=== PATIENT | female | born 1960 | race Two or more races ===

== ENCOUNTER 2018-05-16 23:25 | Emergency (ER) | payer OTHER ==
[~2018-05-16] VITALS: Ht 170.2 cm; Wt 69.9 kg
[2018-05-16 23:39] VITALS: BP 114/59
[2018-05-16] MEDS ORDERED: BENADRYL25 MG ORAL (23:57)
[2018-05-16] MEDS ORDERED: DOXYCYCLINE MO100 MG ORAL (23:57)
--- NOTE | 2018-05-16 23:58 | Emergency Room Report ---
History of Present Illness General Chief Complaint: Skin Rash/Abscess Source: Patient Present Illness HPI Is a 57-year-old female who presents with chief complaint of redness to left leg. She said she got bitten by mosquitoes yesterday and now with redness and increasing swelling. Similar symptom a few years ago. No nausea no vomiting. His itching. Denies any drainage. Denies any other complaint. Worse with scratching. Allergies: Coded Allergies: CODEINE (Verified Allergy, Mild, 01/02/09) SULFA (SULFONAMIDE ANTIBIOTICS) (Verified Allergy, Mild, 01/02/09) Patient History Past Medical History: see triage record, old chart reviewed Past Surgical History: other Pertinent Family History: none Social History: Denies: smoking Last Menstrual Period: n/a Now: No : 0 Para: 0 Immunizations: other Reviewed Nursing Documentation: PMH: Agreed; PSxH: Agreed Nursing Documentation-PM Past Medical History: No Stated History Review of Systems Eye: Denies: eye pain, blurred vision ENT: Denies: ear pain, nose congestion, throat swelling Respiratory: Denies: cough, shortness of breath Cardiovascular: Denies: chest pain, palpitations Gastrointestinal: Denies: abdominal pain, diarrhea, nausea, vomiting Musculoskeletal: Denies: back pain, joint pain Skin: Reports: rash Neurological: Denies: headache, numbness Endocrine: Denies: increased thirst, increased urine Hematologic/Lymphatic: Denies: easy bruising All Other Systems: negative except mentioned in HPI Physical Exam Vital Signs Date Time Temp Pulse Resp B/P (MAP) Pulse Ox O2 Delivery O2 Flow Rate FiO2 05/16/18 23:29 72 16 114/59 97 vitals normal Sp02 EP Interpretation: reviewed, normal General Appearance: well appearing, no apparent distress, alert Head: normocephalic, atraumatic Eyes: bilateral eye PERRL, bilateral eye EOMI ENT: hearing grossly normal, normal pharynx Neck: full range of motion, supple, no meningismus Respiratory: chest non-tender, lungs clear, normal breath sounds Cardiovascular #1: regular rate, rhythm, no murmur Gastrointestinal: normal bowel sounds, non tender, no mass, no organomegaly, no bruit, non-distended Musculoskeletal: back normal, gait/station normal, normal range of motion Neurologic: alert, oriented x3 Psychiatric: mood/affect normal Skin: warm/dry, other - She has erythema to the left ankle area. She has indurated area of 2 cm with surrounding erythema of 6 cm circumference. No abscess. No crepitance. Medical Decision Making Diagnostic Impression: Primary Impression: Cellulitis and abscess of leg ER Course She with cellulitis of her lower extremity. This may be secondary to reaction to mosquito bite. No evidence of necrotizing fasciitis or abscess. We'll discharge home. Last Vital Signs Date Time Temp Pulse Resp B/P (MAP) Pulse Ox O2 Delivery O2 Flow Rate FiO2 05/16/18 23:29 72 16 114/59 97 Status: improved Disposition: HOME, SELF-CARE Condition: Stable Scripts Diphenhydramine Hcl* (BENADRYL*) 25 Mg Capsule 50 MG ORAL Q6H PRN for Itching, #30 CAP Prov: THOMAS CARDOZO M.D. 05/16/18 Doxycycline Monohydrate* (DOXYCYCLINE MONOHYDRATE*) 100 Mg Capsule 100 MG ORAL Q12H, #14 CAP 0 Refills Prov: THOMAS CARDOZO M.D. 05/16/18 Additional Instructions: Follow-up with your DrJeremy in 2-3 days for recheck. Ice pack to affected area. Clean skin with hydroperoxide. Return if worse. THOMAS CARDOZO M.D. May 16, 2018 23:58
[2018-05-17] MEDS ORDERED: Clindamycin 150mg cap ORAL ONE
[2018-05-17 00:09] VITALS: BP 0/0
== END 2018-05-17 00:09 | disposition home or self-care (01) ==
LOC: EMR 23:55
DX: L03.116 Cellulitis of left lower limb (principal)
CPT/HCPCS: 99283